=== PATIENT | female | born 1935 | race Caucasian/White ===

== ENCOUNTER 2016-11-19 09:53 | Emergency (ER) | payer MEDICARE, MEDICAID ==
[2016-11-19 10:27] VITALS: BP 122/81
--- NOTE | 2016-11-19 10:35 | UC ---
Abdominal Pain Female HPI - HPI Summary HPI Summary: pt p/w a sudden onset of progressively worsening ruq pain, n/v, lightheadedness. - History of Current Complaint Stated Complaint: RIGHT ABDOMINAL PAIN/VOMITING Hx Obtained From: Patient ?: No Onset/Duration: Sudden Onset, Lasting Hours, Still Present, Worse Since - progressively Timing: Constant Severity Initially: Moderate Severity Currently: Severe Pain Intensity: 9 - 2nd to ruptured appy Location: Discrete At: RUQ Radiates: Yes Radiates to: Back Character: Sharp Aggravating Factor(s): Movement, Other: - standing Alleviating Factor(s): Position - tripod Associated Signs and Symptoms: Positive: Dizzy, Back Pain, Nausea, Vomiting. Negative: Diaphoresis, Fever, Chest Pain, Constipation, Blood in Stool, Urinary Symptoms - no new sx, Diarrhea Allergies/Adverse Reactions: Allergies Allergy/AdvReac Type Severity Reaction Status Date / Time No Known Allergies Allergy Verified 11/19/16 10:27 Home Medications: Home Medications Abatacept* [Orencia*] 250 mg IV MONTHLY 11/19/16 [History Confirmed 11/19/16] Aspirin [Aspirin 81 MG TAB] 81 mg PO DAILY 11/19/16 [History Confirmed 11/19/16] Methotrexate Sodium [Trexall] 20 mg PO SEE INSTRUCTIONS 11/19/16 [History Confirmed 11/19/16] Naproxen 500 mg PO Q12H PRN 11/19/16 [History Confirmed 11/19/16] PMH/Surg Hx/FS Hx/Imm Hx - Additional Past Medical History Additional PMH: RA - Family History Known Family History: Positive: Cardiac Disease, Hypertension, Diabetes - Social History Occupation: Retired Alcohol Use: None Substance Use Type: None Smoking Status (MU): Former Smoker Review of Systems Constitutional: Chills Skin: Negative ENT: Negative Respiratory: Negative Cardiovascular: Negative Gastrointestinal: Abdominal Pain, Vomiting, Nausea Genitourinary: Negative - no new sx Musculoskeletal: Negative Neurological: Headache All Other Systems Reviewed And Are Negative: Yes Physical Exam Triage Information Reviewed: Yes Appearance: Well-Appearing, Well-Nourished, Pain Distress - mod-severe Vital Signs Reviewed: Yes Eyes: Positive: Conjunctiva Clear. Negative: Discharge ENT: Negative: Hearing grossly normal - slightly [place], Muffled/hoarse voice Neck: Positive: Supple Respiratory: Positive: Lungs clear, Normal breath sounds, No respiratory distress, No accessory muscle use Cardiovascular: Positive: RRR, No Murmur Abdomen Description: Positive: CVA Tenderness (R). Negative: Nontender - mild lower abd tenderness, equisite ruq and epigastric tenderness Bowel Sounds: Positive: Present Musculoskeletal: Positive: Strength Intact Neurological: Positive: Alert, Muscle Tone Normal Psychological: Positive: Age Appropriate Behavior Skin Exam: Normal Abd Pain Female Course/Dx - Differential Dx/Diagnosis Differential Diagnosis: Bowel Obstruction, Gall Bladder Disease, Irritable Bowel Syndrome, Pancreatitis, Renal Colic, Urinary Tract Infection Provider Diagnoses: abd pain of unknown akhil Discharge - Discharge Plan Condition: Stable Disposition: TRANS HIGHER LVL OF CARE FAC
== END 2016-11-19 10:45 | disposition left against medical advice (07) ==
LOC: UCCORT 09:53
DX: R10.11 Right upper quadrant pain (principal); Z87.891 Personal history of nicotine dependence; Z79.82 Long term (current) use of aspirin
CPT/HCPCS: 81003; 99212; G0463

== ENCOUNTER 2017-07-23 13:14 | Emergency (ER) | payer MEDICARE, MEDICAID ==
[2017-07-23 13:32] VITALS: BP 151/81
--- NOTE | 2017-07-23 14:19 | UC ---
Respiratory Complaint HPI - HPI Summary HPI Summary: left side rib pain x 1 day pain is sever, intermittent , comes as she moves or take a deep breath cough x more than one month no nasal congestion , no fever, no chills, no sob - History of Current Complaint Chief Complaint: UCRespiratory Stated Complaint: LEFT SIDE RIB/ABDOMINAL PAIN Time Seen by Provider: 07/23/17 13:51 Hx Obtained From: Patient Onset/Duration: Gradual Onset, Lasting Days - 1, Still Present Severity Initially: Moderate Severity Currently: Severe Pain Intensity: 10 Character: Cough: Nonproductive Aggravating Factors: Allergens, Exertion, Deep Breaths, Recumbent Position Alleviating Factors: Nothing Associated Signs And Symptoms: Positive: Negative. Negative: Dyspnea, Fever, Chills, Pleuritic Chest Pain, Wheezing, Hemoptysis, Dizziness, Calf Pain, Calf Swelling, Edema, URI, Nasal Congestion, Hoarseness, Sinus Discomfort - Allergies/Home Medications Allergies/Adverse Reactions: Allergies Allergy/AdvReac Type Severity Reaction Status Date / Time levofloxacin [From Levaquin] Allergy Vomiting Verified 07/23/17 13:26 PMH/Surg Hx/FS Hx/Imm Hx - Additional Past Medical History Additional PMH: RA - Surgical History Surgical History: Yes Surgery Procedure, Year, and Place: [place], hysterectomy; bladder lift 2011 and subsequent retrieval of sponge left in abdomen - Family History Known Family History: Positive: Cardiac Disease, Hypertension, Diabetes - Social History Alcohol Use: None Substance Use Type: None Smoking Status (MU): Former Smoker When Did the Patient Quit Smoking/Using Tobacco: 25yrs ago Review of Systems Constitutional: Negative Skin: Negative Eyes: Negative ENT: Negative Respiratory: Negative Cardiovascular: Negative Is Patient Immunocompromised?: No All Other Systems Reviewed And Are Negative: Yes Physical Exam Triage Information Reviewed: Yes Appearance: Well-Nourished, Pain Distress Vital Signs: Initial Vital Signs Temp 97.9 F 07/23/17 13:26 Pulse 76 07/23/17 13:26 Resp 20 07/23/17 13:26 BP 151/81 07/23/17 13:26 Pulse Ox 99 07/23/17 13:26 Vital Signs Reviewed: Yes Eyes: Positive: Conjunctiva Clear ENT: Positive: Normal ENT inspection, Hearing grossly normal, Pharynx normal Neck: Positive: Supple, Nontender, No Lymphadenopathy Respiratory: Positive: Chest non-tender, Lungs clear, Normal breath sounds Cardiovascular: Positive: RRR, No Murmur, Pulses Normal Abdominal Exam: Normal Abdomen Description: Positive: Nontender, No Organomegaly, Soft. Negative: Bruit, CVA Tenderness (R), CVA Tenderness (L), Distended, Guarding Bowel Sounds: Positive: Present Musculoskeletal: Positive: Other: - right rib: + sever tenderness posterior ribs # 4,6,7,8 Skin Exam: Normal UC Diagnostic Evaluation - Laboratory O2 Sat by Pulse Oximetry: 99 Diagnostic Studies Comment: xray left rib/ 1 view chest: no acute diseas , no rib fracture seen Respiratory Course/Dx - Differential Dx/Diagnosis Provider Diagnoses: strain left ribs Discharge - Discharge Plan Condition: Stable Disposition: HOME Prescriptions: Benzonatate CAP* [Tessalon 100 MG CAP*] 100 mg PO TID PRN #21 cap PRN Reason: Cough traMADol TAB* [Ultram*] 50 mg PO Q6HR PRN #20 tab MDD 4 PRN Reason: Pain Referrals: Nicolasa You PA [Primary Care Provider] -
--- NOTE | 2017-07-23 14:27 | RAD ---
Indication: LEFT lateral chest pain since last night. Pain worsens with movement. Productive cough for one month. Comparison: October 11, [address] December 08, 2010 chest radiograph. Technique: Dual energy PA chest and 3 view LEFT unilateral rib series. Report: Elevated lung volumes and both diffuse mild prominence of the interstitial markings and patchy rarefaction of the mid to upper lung zone interstitial markings. No focal pulmonary lesion, alveolar consolidation, pleural effusion, or pneumothorax. The heart, pulmonary vasculature, and mediastinal contours are unremarkable. No LEFT rib fracture evident. IMPRESSION: 1. Stigmata of chronic obstructive pulmonary disease. No evidence for pneumonia. 2. No LEFT rib fracture or pneumothorax evident.
== END 2017-07-23 14:49 | disposition home or self-care (01) ==
LOC: UCCORT 13:14
DX: S29.011A Strain of muscle and tendon of front wall of thorax, initial encounter (principal); X58.XXXA Exposure to other specified factors, initial encounter; Y93.9 Activity, unspecified; Y92.9 Unspecified place or not applicable; M06.9 Rheumatoid arthritis, unspecified; R05 Cough; Z88.1 Allergy status to other antibiotic agents; Z87.891 Personal history of nicotine dependence
CPT/HCPCS: 99212; G0463